=== PATIENT | male | born 1970 ===

== ENCOUNTER 2021-09-02 11:52 | Outpatient (REF) | payer OTHER, SELFPAY ==
[2021-09-02 13:43] LABS: Syphilis Screen Nonreactive (Nonreactive)
[2021-09-02 14:33] LABS: Erythrocyte Sedimentation Rate 25 MM/HR (0-15)
[2021-09-03 09:52] LABS: Anti-Thrombin III Activity 131 % normal (80-135)
[2021-09-03 11:17] LABS: Anti Nuclear Antibody Screen NEGATIVE (NEGATIVE)
[2021-09-03 11:31] LABS: PTT (LAC) Screen 32 sec (< OR = 40)
[2021-09-05 23:22] LABS: Protein C Activity 162 % (70-180); Protein S Activity rflx Tot&Fr 117 % (70-150)
[2021-09-06 20:06] LABS: Factor V Leiden NEGATIVE
[2021-09-07 12:22] LABS: Cardiolipin IgG Ab <2.0 GPL-U/mL; Cardiolipin IgM Ab <2.0 MPL-U/mL
== END 2021-09-02 11:53 | disposition home or self-care (01) ==
LOC: HO.LAB 11:52
PROVIDERS: Visit Provider Psychiatry & Neurology Neurology
DX: I63.50 Cerebral infarction due to unspecified occlusion or stenosis of unspecified cerebral artery (principal)
CPT/HCPCS: 36415; 81241; 85300; 85302; 85303; 85305; 85306; 85597; 85613; 85652; 85730; 86038; 86039; 86147; 86780

== ENCOUNTER → 2021-12-03 08:06 | Outpatient (REF) | payer OTHER, SELFPAY ==
--- NOTE | 2021-12-03 08:10 | CA_ITS ---
Transthoracic Echocardiogram Patient (Last, First, Middle): Kelli Marques, Gender: Male Date of : 1970 Age: 51 Procedure Date: 12/03/2021 Procedure Type: Transthoracic Echocardiogram Location: OP Height: 149.86 cm Weight: 89.36 kg BSA: 1.83 m2 Heart Rate: bpm BP: 130 / 76 mmHg Tire Changer Aircraft: CHRIS Referring MD: Franci Malone MD Clerical Aide Teacher: Shabbir Chavez MD Symptoms: I63.50 MULTIPLE CEREBRAL INFARCTIONS Study Quality: Technically Difficult ECG Rhythm: Sinus Conclusions: - 1. Technically limited study 2. Normal LV systolic function with impaired relaxation filling pattern 3. Limited visualization of cardiac valve with normal cardiac valvular Doppler 4. Normal RV systolic pressure Findings Left Ventricle Normal left ventricular size, thickness, and systolic function. The visually estimated ejection fraction is between 55-60%. Spectral Doppler is indicative of an impaired relaxation filling pattern. Right Ventricle The right ventricle was not well visualized. Atria The left atrium was not well visualized. Interatrial shunt cannot be excluded. The right atrium was not well visualized. Aortic Valve The aortic valve was not well visualized. There is no aortic valve stenosis. There is trace (trivial) aortic valve regurgitation. Mitral Valve The mitral valve was not well visualized. There is no mitral valve regurgitation. There is no mitral valve stenosis. Pulmonic Valve The pulmonic valve was not well visualized. Tricuspid Valve The tricuspid valve was not well visualized. There is trace tricuspid valve regurgitation. The right ventricular systolic pressure is normal. There is no evidence of pulmonary hypertension. Great Vessels The aorta was not well visualized. The pulmonary artery was not well visualized. Venous The inferior vena cava was not well visualized. Pericardium/Pleural The pericardium was not well visualized. Prior Study Comparison No prior study available for comparison. Recommendations, Care & Conclusions Consider a CHRISTIANO if clinically appropriate. Recommend contrast study to evaluate intracardiac shunting. Measurements 2D Linear Measurements IVSd: 0.94 0.6-0.9/0.6-1.0 cm LVIDd: 4.73 3.9-5.3/4.2-5.9 cm LVIDd Index: 2.58 2.4-3.2/2.2-3.1 cm/m2 LVIDs: 3.22 2.0-3.6 cm LVPWd: 1.15 0.7-1.1 cm LA Diam: 2.60 2.7-3.8/3.0-4.0 cm LAIDs Index: 1.42 1.5-2.3 cm/m2 LV Mass: 220.28 67-162/88-224 g LV Mass Index: 120.37 43-95/49-115 g/m2 LVOT Diam: 2.00 3.0+(-)1.3 cm 2D Systolic Function EF 4C: 58.00 >55% EF 2C: 59.00 >55% EF BiP: 57.80 >55% Mitral Valve MV Pk E: 0.62 MV PK A: 0.90 MV Decel Time: 249.00 E/A: 0.70 E'Lateral: 7.94 E'Medial: 5.98 E/E' Med: 10.40 E/E' Lat: 7.80 PHT: 73.00 MVA PHT: 3.01 Decel Marathon: 2.49 Aortic Valve AoV Pk Alex: 1.36 AoV Mn Alex: 1.05 AoV VTI: 0.32 AoV Pk Grad: 7.00 Aov Mn Grad: 5.00 OSMANY Cont.VTI: 2.25 LVOT LVOT Pk Alex: 0.99 LVOT Mn Alex: 0.66 LVOT VTI: 0.23 LVOT Pk Grad: 4.00 LVOT Mn Grad: 2.00 LVOT Diam: 2.00 LVOT Area: 3.14 Diastolic Function MV Pk E: 0.62 MV Pk A: 0.90 E/A: 0.70 E'Medial: 5.98 E/E' Med: 10.40 E' Laterial: 7.94 E/E' Lat: 7.80 Right Ventricle TAPSE (mm): 19.40 TVS' Alex: 11.90 Tricuspid Valve TR Pk Alex: 2.00 TR Pk Grad: 16.00 RA Press: 3.00 RVSP: 19.00 Great Vessels Aorta Sinus of Valsalva: 2.69 2.0-3.[address] Ridge: 2.49 1.7-3.4 cm Ao Asc: 3.00 2.1-3.4 cm Ao Arch: 2.80 Updated in Other Vendor System with Status of Final Shabbir Chavez MD electronically signed on 12/03/2021 11:03:23 AM with status of Final
== END ==
LOC: HO.CARD 08:06
PROVIDERS: Visit Provider Psychiatry & Neurology Neurology
DX: I63.50 Cerebral infarction due to unspecified occlusion or stenosis of unspecified cerebral artery (principal)
CPT/HCPCS: 93306

== ENCOUNTER → 2022-01-15 14:15 | Outpatient (BNVA) | payer OTHER, SELFPAY | PROVIDERS: Referring Provider Psychiatry & Neurology Neurology; Visit Provider Internal Medicine | DX: I63.9 Cerebral infarction, unspecified (principal) | CPT/HCPCS: 93005; 99202 ==

== ENCOUNTER 2022-01-23 06:01 | Day surgery (SDC) | payer OTHER, SELFPAY ==
--- NOTE | 2022-01-22 09:20 | HO.ANESPROP2 ---
Documented by User: Nikki Liu NP 01/22/22 09:26 HPI - Anesthesia Eval Consult details Narrative: 51yo F for Transesophageal Echocardiogram with bubble study PMFSH Active Problems Active Problems: All Active Problems (Updated 01/15/22 @ 14:53 by Erick Cline MD) Embolic stroke (Acute) Past Medical History Medical History Cancer Embolic stroke Family History Family History Mother No problems noted. Father No problems noted. Surgical History Surgical History History of surgery Social History Social History Patient Tobacco Use Status: Current everyday Tobacco user Tobacco use type: Cigarette Cigarettes Per Day: 5 Smoked in Last 30 Days: Yes Patient Given Instructions on How to Stop Smoking: Yes Date Education Initiated: 01/23/22 Second Hand Smoke Exposure: No Use of substances other than those prescribed or required for medical reasons: No Are you DNR?: No Advance Directives: No Advance Directives Information Provided: Yes Patient : No (hx tubal) Meds Allergies Allergy/AdvReac Type Severity Reaction Status Date / Time No Known Allergies Allergy Verified 01/15/22 14:38 Home Medications Medication Instructions Recorded Confirmed Last Taken Type aspirin 81 mg tablet,delayed 81 mg PO DAILY 01/15/22 01/23/22 01/22/22 History release atorvastatin 80 mg tablet 80 mg PO DAILY 01/15/22 01/23/22 Unknown History Exam Exam Date and Time: January 22, [id number] Narrative Narrative: ECHO 11/2021 Conclusions: - 1. Technically limited study ? 2. Normal LV systolic function with impaired relaxation filling? pattern? 3. Limited visualization of cardiac valve with normal cardiac? ? valvular Doppler ? 4.? Normal RV systolic pressure? Findings Left Ventricle Normal left ventricular size, thickness, and systolic function. The visually estimated ejection fraction is between 55-60%.? Spectral Doppler is indicative of an impaired relaxation filling pattern. Per Neuro note MRI brain at [facility] 05/2021: Small right motor strip and fainter smaller left frontal acute cerebral infarctions CTA brain and neck at [facility] 05/2021 OK EKG at [facility] : NSR Labs at [facility] 05/2021: cbc ok, cmp ok, LFTs ok, lyme neg, CHOl 209, LDL 151, HDL 46 Assessment and Plan Assessment Anesthesia Assessment: Chart Reviewed Documented by User: Renea Rossi MD 01/23/22 08:14 PMFSH Active Problems Active Problems: All Active Problems (Updated 01/15/22 @ 14:53 by Erick Cline MD) Embolic stroke (Acute) Snores but has had sleep study which was negative for ISMAEL Increased BMI Smoker- last cigarette yesterday 01/22/22 Past Medical History Medical History Cancer Embolic stroke Family History Family History Mother No problems noted. Father No problems noted. Family history of problems with anesthesia: No Surgical History Surgical History History of surgery History of Problems with Anesthesia: No Social History Social History Patient Tobacco Use Status: Current everyday Tobacco user Tobacco use type: Cigarette Cigarettes Per Day: 5 Smoked in Last 30 Days: Yes Patient Given Instructions on How to Stop Smoking: Yes Date Education Initiated: 01/23/22 Second Hand Smoke Exposure: No Use of substances other than those prescribed or required for medical reasons: No Are you DNR?: No Advance Directives: No Advance Directives Information Provided: Yes Patient : No (hx tubal) Meds Allergies Allergy/AdvReac Type Severity Reaction Status Date / Time No Known Allergies Allergy Verified 01/15/22 14:38 Home Medications Medication Instructions Recorded Confirmed Last Taken Type aspirin 81 mg tablet,delayed 81 mg PO DAILY 01/15/22 01/23/22 01/22/22 History release atorvastatin 80 mg tablet 80 mg PO DAILY 01/15/22 01/23/22 Unknown History Exam Height,Weight and Vital Signs: Height 4 ft 11 in Weight 89.358 kg Vital Signs Temp Pulse Resp BP Pulse Ox O2 Del Method 01/23/22 06:35 97.4 F 76 18 127/76 95 Room Air Airway Mallampati Class: I TM Dist: >3cm Neck ROM: Full Denture: Upper and Lower Heart: RRR Lungs: CTAB Assessment and Plan Assessment Anesthesia Assessment: Anesthesia Plan Discussed Final Anesthetic Review Family History of Problems with Anesthesia: No History of Problems with Anesthesia: No NPO: Yes ASA Class: III Final Preanesthetic Review: No Changes in Pt Med Stat, Meds/Allgs Chart Reviewed, Consent Obtained/Reviewed and Anes Risks/Benef Reviewed Patient Risk: Intermediate Procedure Risk: Low Assessment/Block/Sedation in SS: Assess/Block/Sedation-SS Anesthetic Plan Anesthetic Plan: MAC: Disposition: Standard PACU
[2022-01-23 06:08] VITALS: BMI 38.3
[2022-01-23 06:35] VITALS: BP 127/76; PULSE 76; RESP 18; TEMP 36.3; O2SAT 95; BMI 39.7
[2022-01-23] MEDS: Lactated Ringers 1,000 ML 100 ML IVCONT (06:57)
--- NOTE | 2022-01-23 07:54 | CA_ITS ---
Transesophageal Echocardiogram Patient (Last, First, Middle): Kelli Marques, Gender: Female Date of : 1970 Age: 51 Procedure Date: 01/23/2022 Procedure Type: Transesophageal Echocardiogram Location: OP Height: 149.8 cm Weight: 89.3 kg BSA: 1.83 m2 Heart Rate: bpm Timber Framer: LEANNA Referring MD: Erick Cline MD Symptoms: I63.9 - Cerebral infarction, unspecified Conclusion: ??? The left ventricular systolic function is normal. The visually estimated ejection fraction is between 55-60%. ??? There is no evidence of interatrial shunt by color Doppler and contrast. ??? There is mild to moderate aortic valve regurgitation. ??? Small plaque is seen in the arch and descending thoracic aorta. Findings Procedure Information Consent was obtained prior to the procedure. Pre CHRISTIANO oral cavity was checked and revealed no overcrowding. The adult 3D probe was passed with no difficulty. Left Ventricle Normal left ventricular cavity size. The left ventricular systolic function is normal. The visually estimated ejection fraction is between 55-60%. There is no evidence of regional wall motion abnormalities. Right Ventricle Normal right ventricular cavity size and systolic function. Atria There is no evidence of a thrombus in the left atrial appendage. There is no evidence of interatrial shunt by color Doppler and contrast. Bubble study negative during rest as well as well valsalva. Aortic Valve There is a normal trileaflet aortic valve. There is mild thickening of the aortic valve. There is no aortic valve stenosis. There is mild to moderate aortic valve regurgitation. Mitral Valve The mitral valve appears normal. There is trace mitral valve regurgitation. There is no mitral valve stenosis. Pulmonic Valve The pulmonic valve was not well visualized. Tricuspid Valve Normal tricuspid valve structure. There is trace tricuspid valve regurgitation. Great Vessels The aortic annulus, sinuses of valsalva, and asc aorta are normal in size. Small plaque is seen in the arch and descending thoracic aorta. Pericardium/Pleural There is no evidence of pericardial effusion. Prior Study Comparison Changes noted compared to prior study dated: 12/03/2021. See comments on aortic regurgitation. Updated by Erick Cline on 01:36 PM with Status of Final Erick Cline MD electronically signed on 01/25/2022 1:36:06 PM with status of Final
--- NOTE | 2022-01-23 08:12 | MHC.SHP ---
Pre-Procedural Eval Section A Date of Service: 01/23/22 The patient is an INPATIENT: No Section B Chief Complaint: cerebral infarction Allergies: Allergies Allergy/AdvReac Type Severity Reaction Status Date / Time No Known Allergies Allergy Verified 01/15/22 14:38 Plan I have reviewed the history and physical and performed a pertinent physical examination on my patient. No changes have occurred unless specified.
[2022-01-23 08:52] VITALS: BP 108/79; PULSE 75; RESP 16; TEMP 36.2; O2SAT 98
[2022-01-23 09:07] VITALS: BP 109/68; PULSE 69; RESP 18; TEMP 36.2; O2SAT 96
== END 2022-01-23 10:53 | disposition home or self-care (01) ==
PROVIDERS: Visit Provider Internal Medicine
PROC: (CPT 93312; principal; 2022-01-23 08:00)
DX: I63.9 Cerebral infarction, unspecified (principal); Z85.89 Personal history of malignant neoplasm of other organs and systems; Z92.21 Personal history of antineoplastic chemotherapy; Z79.82 Long term (current) use of aspirin; Z79.899 Other long term (current) drug therapy; F17.210 Nicotine dependence, cigarettes, uncomplicated
CPT/HCPCS: 93312

== ENCOUNTER 2022-02-05 09:46 | Outpatient (REF) | payer OTHER, SELFPAY ==
--- NOTE | 2022-02-05 09:40 | MHC.SHP ---
Pre-Procedural Eval Section A Date of Service: 02/05/22 The patient is an INPATIENT: No Changes since office visit: Yes Patient answered all questions; No Cold of Flu in the past 2 weeks, No New Medical Problems and No Changes in Medication The History & Physical has been completed within 30 days and I have reviewed it.: Yes Section B Chief Complaint: cerebral infarction Allergies: Allergies Allergy/AdvReac Type Severity Reaction Status Date / Time No Known Allergies Allergy Verified 01/15/22 14:38 Plan I have reviewed the history and physical and performed a pertinent physical examination on my patient. No changes have occurred unless specified.
[2022-02-05 09:59] VITALS: BP 132/75; PULSE 76; RESP 16; TEMP 36.4; O2SAT 95
[2022-02-05 10:00] VITALS: BMI 38.9
[2022-02-05 11:23] VITALS: BP 131/75; PULSE 70; RESP 16; O2SAT 97
--- NOTE | 2022-02-05 12:27 | PM.OP ---
Brief Operative Note Date of Service: 02/05/22 Pre-op diagnosis: Cryptogenic stroke Post-op diagnosis: same Procedure: Implantation of loop recorder Implants: [employer] implantable loop recorder, serial [id number] After obtaining full consent patient was brought to the minor surgery room. Patient was then laid supine on the operating table. The precordial area was then prepped and draped in sterile fashion. Patient was then given lidocaine 2% with epinephrine intradermally and subcutaneously in the 4th intercostal space. A [employer] implantable loop recorder was then inserted into the subcutaneous space using Seldinger technique. Measured R-wave at 0.51 mV The wound was then closed with Steri-Strips and pressure sterile dressing was then applied. Surgeon: Shabbir Chavez MD Anesthesia: local Was an Mixed Signal Design Engineer used for this Procedure?: No Estimated blood loss (mL): 2 Pathology: none sent Condition: stable Disposition: same day
--- NOTE | 2022-02-05 15:00 | HO.POSTANES ---
Post Anesthesia Evaluation Post Anesthesia Evaluation Vital Signs: Vital Signs Temp Pulse Resp BP Pulse Ox O2 Del Method 02/05/22 11:23 70 16 131/75 97 Room Air 02/05/22 09:59 97.6 F 76 16 132/75 95 Room Air Anesthesia: Monitored Mental Status: Awake Pain Control: Satisfactory Nausea/Vomiting: None Hydration: Adequate Anesthesia-Related Issues: No Anes. Related Issues
== END 2022-02-05 09:47 | disposition home or self-care (01) ==
LOC: HO.MS 09:46
PROVIDERS: Visit Provider Internal Medicine Cardiovascular Disease
PROC: (CPT 33285; principal; 2022-02-05 11:00)
DX: I63.9 Cerebral infarction, unspecified (principal); F17.210 Nicotine dependence, cigarettes, uncomplicated
CPT/HCPCS: 33285; C1764

== ENCOUNTER → 2022-02-19 13:57 | Outpatient (BNVA) | payer OTHER, SELFPAY | PROVIDERS: Visit Provider Nurse Practitioner Family | DX: Z51.89 Encounter for other specified aftercare (principal); I35.1 Nonrheumatic aortic (valve) insufficiency; Z86.73 Personal history of transient ischemic attack (TIA), and cerebral infarction without residual deficits; Z95.818 Presence of other cardiac implants and grafts | CPT/HCPCS: 99212 ==

== ENCOUNTER → 2022-08-27 08:56 | Outpatient (BNVA) | payer OTHER, SELFPAY | PROVIDERS: Visit Provider Internal Medicine | DX: I63.9 Cerebral infarction, unspecified (principal); I35.1 Nonrheumatic aortic (valve) insufficiency | CPT/HCPCS: 99212 ==

== ENCOUNTER → 2023-03-22 23:59 | Outpatient (BNV) | payer OTHER, SELFPAY ==
--- NOTE | 2023-03-23 15:49 | A.OFFVIS_ITS ---
Intake Intake Visit Reasons: Remote ILR Check- [facility] Allergies No Known Allergies Allergy (Verified 08/27/22 09:01) [facility] Medical History Cancer Embolic stroke Surgical History History of surgery Family History Mother No problems noted. Father No problems noted. Social History Patient Tobacco Use Status: Current everyday Tobacco user Tobacco use type: Cigarette Cigarettes Per Day: 5 Second Hand Smoke Exposure: No Office Procedures Cardiac Device Check Cardiac Device Check Details: Date of service 03/22/2023; in the current monitoring period, there is no evidence of atrial fibrillation. No atrial fibrilllation during lifetime. [id number] Cardiac Interrogation, subcut cardiac rhythm monitor Procedure code (CPT) selection complete Assessment & Plan Assessment & Plan (1) Embolic stroke: Code(s): I63.9 - Cerebral infarction, unspecified Coding Level of Care Code Procedure Only Diagnoses Embolic stroke I63.9 CPT Codes Cardiac Device Check - Cardiac Device 16: [id number] Cardiac Interrogation, subcut cardiac rhythm monitor ([id number])
== END ==
PROVIDERS: Visit Provider Internal Medicine
DX: I63.9 Cerebral infarction, unspecified (principal); Z95.818 Presence of other cardiac implants and grafts
CPT/HCPCS: 93298

== ENCOUNTER → 2023-05-11 23:59 | Outpatient (BNV) | payer OTHER, SELFPAY ==
--- NOTE | 2023-05-14 14:10 | A.OFFVIS_ITS ---
Intake Intake Visit Reasons: Remote ILR Check- [facility] Allergies No Known Allergies Allergy (Verified 05/14/23 12:59) [facility] Medical History Cancer Embolic stroke Surgical History History of surgery Family History Mother No problems noted. Father No problems noted. Social History Patient Tobacco Use Status: Current everyday Tobacco user Tobacco use type: Cigarette Cigarettes Per Day: 5 Second Hand Smoke Exposure: No Office Procedures Cardiac Device Check Cardiac Device Check Details: Date of service 05/11/2023; in the current monitoring period, there is no evidence of atrial fibrillation. No atrial fibrilllation during lifetime. [id number] Cardiac Interrogation, subcut cardiac rhythm monitor Procedure code (CPT) selection complete Assessment & Plan Assessment & Plan (1) Embolic stroke: Code(s): I63.9 - Cerebral infarction, unspecified Qualifiers: Precerebral and cerebral artery: unspecified cerebral artery Qualified Code(s): I63.40 - Cerebral infarction due to embolism of unspecified cerebral artery Coding Level of Care Code Procedure Only Diagnoses Cerebrovascular accident (CVA) due to embolism of cerebral artery I63.40 Precerebral and cerebral artery: unspecified cerebral artery CPT Codes Cardiac Device Check - Cardiac Device 16: [id number] Cardiac Interrogation, subcut cardiac rhythm monitor ([id number])
== END ==
PROVIDERS: Visit Provider Internal Medicine
DX: I63.40 Cerebral infarction due to embolism of unspecified cerebral artery (principal)
CPT/HCPCS: 93298

== ENCOUNTER 2023-05-14 12:44 | Outpatient (AMB) | payer OTHER, SELFPAY ==
--- NOTE | 2023-05-14 12:51 | A.OFFVIS_ITS ---
Intake Vital Signs 05/14/23 12:58 Height 4 ft 11 in Weight 219 lb 2.232 oz BMI 44.3 BP 115/64 Blood Pressure Location Rt brachial Position Sitting Respiration 16 Pulse 84 Pulse Source Pulse Oximeter Pulse Oximetry (%) 96 Oxygen Delivery Method Room Air Intake Visit Reasons: r/s from [id number] ill Intake Note: Patient here for follow up with EKG Seed Cutter Required: No Allergies No Known Allergies Allergy (Verified 05/14/23 12:59) Medication List - Last Reconciled 05/14/23 by Erick Cline MD aspirin 81 mg PO DAILY atorvastatin 80 mg PO DAILY HPI HPI Comments History of Present Illness Details Kelli returns for follow-up. She has ILR implanted regarding embolic stroke. To recall, there is a history of Ovarian cancer diagnosed 2016, status post surgery as well as chemotherapy. She has obesity at baseline. She went to [facility] in 2020 with slurring of speech and facial droop. At that time, MRI had revealed right-sided embolic looking infarct. CTA/brain and neck were unremarkable. EKG had showed sinus rhythm. Hypercoagulability screen was also negative. Then referred for cardiac workup. CHRISTIANO did not show any cardiac source of embolus. Hence implantable loop recorder placed. She states she is doing fine. No specific cardiac symptoms like angina or shortness of breath or anything else. Seems to be getting along fine. [facility] Medical History Cancer Embolic stroke Surgical History History of surgery Family History Mother No problems noted. Father No problems noted. Social History Patient Tobacco Use Status: Current everyday Tobacco user Tobacco use type: Cigarette Cigarettes Per Day: 5 Second Hand Smoke Exposure: No Review of Systems Const Denies weakness ENT Denies dizziness Card Denies chest pain, Denies chest pain with activity, Denies syncope, Denies rapid heart rate, Denies pedal edema, Denies edema, Denies leg edema, Denies lightheadedness, Denies palpitations, Denies dyspnea, Denies dyspnea on exertion and Denies orthopnea Resp Denies cough, Denies dyspnea and Denies dyspnea on exertion GI Denies hematochezia and Denies change in stool character Reports no additional complaints and Reports as per HPI Musc Denies abnormal gait, Denies muscle weakness, Denies numbness, Denies radiating pain into limb and Denies tingling Skin/Breast Reports system reviewed and no additional complaints, except as documented and Reports as per HPI Neuro Denies abnormal gait, Denies dizziness, Denies syncope, Denies numbness, Denies tingling and Denies weakness Psych Reports no additional complaints and Reports as per HPI Endo Denies palpitations Physical Exam Vital Signs: Last Vital Signs Pulse 84 05/14/23 12:58 Resp 16 05/14/23 12:58 BP 115/64 05/14/23 12:58 Pulse Ox 96 05/14/23 12:58 Oxygen Delivery Method Room Air 05/14/23 12:58 BMI result Body Mass Index 44.3 Const General: comfortable and no acute distress Orientation/consciousness: patient oriented x3 HEENT Other: Unremarkable Head: Yes normal to inspection Neck Neck: Yes normal visual inspection Chest Chest palpation & inspection: normal inspection of the chest Resp Auscultation: clear to auscultation bilaterally Cardio Palpation: normal PMI Heart sounds: S1 normal heart sound present, S2 normal heart sound present, no gallops, no murmurs and no rubs GI Palpation (GI): Soft to palpation Back/Spine/Pelvis Other: unremarkable Skin General skin exam: no rashes or lesions noted Neuro General: patient oriented x3 Extrem General: Yes normal to inspection Psych Mental Status: mental status grossly normal Office Procedures EKG Details: EKG with sinus rhythm at 79/Min; no significant ST-T changes and otherwise unremarkable[place] [id number], Complete Assessment & Plan Assessment & Plan (1) Embolic stroke: Code(s): I63.9 - Cerebral infarction, unspecified Qualifiers: Precerebral and cerebral artery: unspecified cerebral artery Qualified Code(s): I63.40 - Cerebral infarction due to embolism of unspecified cerebral artery Plan: Per neurology note, CTA brain and neck at [facility] was unremarkable. CT brain had shown acute right frontal infarct. On CHRISTIANO, no cardiac source of embolus. So far, no evidence of atrial fibrillation. Will continue to monitor. (2) Nonrheumatic aortic valve regurgitation: Code(s): I35.1 - Nonrheumatic aortic (valve) insufficiency Plan: Mild to moderate aortic regurgitation noted on CHRISTIANO. Not significant. Can be followed up with another study next year. Orders: Orders CA echo transthoracic complete 51 Weeks I35.1 - Nonrheumatic aortic (valve) insufficiency Coding Level of Care Code Est Pt Level 3 (00271) Diagnoses Cerebrovascular accident (CVA) due to embolism of cerebral artery I63.40 Precerebral and cerebral artery: unspecified cerebral artery Nonrheumatic aortic valve regurgitation I35.1 CPT Codes EKG - CPT: 84912-[id number], Complete ([id number])
[2023-05-14 12:58] VITALS: BP 115/64; PULSE 84; RESP 16; O2SAT 96; BMI 44.3
== END 2023-05-14 13:25 | disposition home or self-care (01) ==
PROVIDERS: Visit Provider Internal Medicine
DX: I63.40 Cerebral infarction due to embolism of unspecified cerebral artery (principal); I35.1 Nonrheumatic aortic (valve) insufficiency
CPT/HCPCS: 93010; 99213

== ENCOUNTER → 2023-05-14 12:44 | Outpatient (BNVA) | payer OTHER, SELFPAY | PROVIDERS: Visit Provider Internal Medicine | DX: I35.1 Nonrheumatic aortic (valve) insufficiency (principal); Z86.73 Personal history of transient ischemic attack (TIA), and cerebral infarction without residual deficits | CPT/HCPCS: 93005; 99212 ==

== ENCOUNTER → 2023-07-17 23:59 | Outpatient (BNV) | payer OTHER, SELFPAY ==
--- NOTE | 2023-07-26 18:37 | MHC.OFFVIS ---
Intake Intake Visit Reasons: Remote ILR Check- [facility] Allergies No Known Allergies Allergy (Verified 05/14/23 12:59) [facility] Medical History Cancer Embolic stroke Surgical History History of surgery Family History Mother No problems noted. Father No problems noted. Social History Patient Tobacco Use Status: Current everyday Tobacco user Tobacco use type: Cigarette Cigarettes Per Day: 5 Second Hand Smoke Exposure: No Office Procedures Cardiac Device Check Cardiac Device Check Details: Date of service 07/17/2023; in the current monitoring period, there is no evidence of atrial fibrillation. [id number] Cardiac Interrogation, subcut cardiac rhythm monitor Procedure code (CPT) selection complete Assessment & Plan Assessment & Plan (1) Embolic stroke: Code(s): I63.9 - Cerebral infarction, unspecified Qualifiers: Precerebral and cerebral artery: unspecified cerebral artery Qualified Code(s): I63.40 - Cerebral infarction due to embolism of unspecified cerebral artery Plan x Coding Level of Care Code Procedure Only Diagnoses Cerebrovascular accident (CVA) due to embolism of cerebral artery I63.40 Precerebral and cerebral artery: unspecified cerebral artery CPT Codes Cardiac Device Check - Cardiac Device 16: [id number] Cardiac Interrogation, subcut cardiac rhythm monitor ([id number])
== END ==
PROVIDERS: Visit Provider Internal Medicine
DX: I63.40 Cerebral infarction due to embolism of unspecified cerebral artery (principal)
CPT/HCPCS: 93298

== ENCOUNTER → 2023-08-05 23:59 | Outpatient (BNV) | payer OTHER, SELFPAY ==
--- NOTE | 2023-08-06 12:49 | MHC.OFFVIS ---
Intake Intake Visit Reasons: Remote ILR Check- [facility] Allergies No Known Allergies Allergy (Verified 05/14/23 12:59) [facility] Medical History Cancer Embolic stroke Surgical History History of surgery Family History Mother No problems noted. Father No problems noted. Social History Patient Tobacco Use Status: Current everyday Tobacco user Tobacco use type: Cigarette Cigarettes Per Day: 5 Second Hand Smoke Exposure: No Office Procedures Cardiac Device Check Cardiac Device Check Details: Date of service 08/05/2023; in the current monitoring period, there is no evidence of atrial fibrillation. [id number] Cardiac Interrogation, subcut cardiac rhythm monitor Procedure code (CPT) selection complete Assessment & Plan Assessment & Plan (1) Embolic stroke: Code(s): I63.9 - Cerebral infarction, unspecified Qualifiers: Precerebral and cerebral artery: unspecified cerebral artery Qualified Code(s): I63.40 - Cerebral infarction due to embolism of unspecified cerebral artery Plan x Coding Level of Care Code Procedure Only Diagnoses Cerebrovascular accident (CVA) due to embolism of cerebral artery I63.40 Precerebral and cerebral artery: unspecified cerebral artery CPT Codes Cardiac Device Check - Cardiac Device 16: [id number] Cardiac Interrogation, subcut cardiac rhythm monitor ([id number])
== END ==
PROVIDERS: Visit Provider Internal Medicine
DX: I63.40 Cerebral infarction due to embolism of unspecified cerebral artery (principal); Z95.818 Presence of other cardiac implants and grafts
CPT/HCPCS: 93298

== ENCOUNTER → 2023-09-05 23:59 | Outpatient (BNV) | payer OTHER, SELFPAY ==
--- NOTE | 2023-09-08 12:22 | A.OFFVIS_ITS ---
Intake Intake Visit Reasons: Remote ILR Check[facility] Allergies No Known Allergies Allergy (Verified 05/14/23 12:59) [facility] Medical History Cancer Embolic stroke Surgical History History of surgery Family History Mother No problems noted. Father No problems noted. Social History Patient Tobacco Use Status: Current everyday Tobacco user Tobacco use type: Cigarette Cigarettes Per Day: 5 Second Hand Smoke Exposure: No Office Procedures Cardiac Device Check Cardiac Device Check Details: Date of service 09/05/2023; in the current monitoring period, there is no evidence of atrial fibrillation. [id number] Cardiac Interrogation, subcut cardiac rhythm monitor Procedure code (CPT) selection complete Assessment & Plan Assessment & Plan (1) Embolic stroke: Code(s): I63.9 - Cerebral infarction, unspecified Qualifiers: Precerebral and cerebral artery: unspecified cerebral artery Qualified Code(s): I63.40 - Cerebral infarction due to embolism of unspecified cerebral artery Plan x Coding Level of Care Code Procedure Only Diagnoses Cerebrovascular accident (CVA) due to embolism of cerebral artery I63.40 Precerebral and cerebral artery: unspecified cerebral artery CPT Codes Cardiac Device Check - Cardiac Device 16: [id number] Cardiac Interrogation, subcut cardiac rhythm monitor ([id number])
== END ==
PROVIDERS: Visit Provider Internal Medicine
DX: I63.40 Cerebral infarction due to embolism of unspecified cerebral artery (principal); Z95.818 Presence of other cardiac implants and grafts
CPT/HCPCS: 93298

== ENCOUNTER → 2023-10-06 23:59 | Outpatient (BNV) | payer OTHER, SELFPAY ==
--- NOTE | 2023-10-07 18:59 | A.OFFVIS_ITS ---
Intake Intake Visit Reasons: Remote ILR Check- [facility] Allergies No Known Allergies Allergy (Verified 05/14/23 12:59) [facility] Medical History Cancer Embolic stroke Surgical History History of surgery Family History Mother No problems noted. Father No problems noted. Social History Patient Tobacco Use Status: Current everyday Tobacco user Tobacco use type: Cigarette Cigarettes Per Day: 5 Second Hand Smoke Exposure: No Office Procedures Cardiac Device Check Cardiac Device Check Details: Date of service 10/06/2023; in the current monitoring period, there is no evidence of atrial fibrillation. [id number] Cardiac Interrogation, subcut cardiac rhythm monitor Procedure code (CPT) selection complete Assessment & Plan Assessment & Plan (1) Embolic stroke: Code(s): I63.9 - Cerebral infarction, unspecified Qualifiers: Precerebral and cerebral artery: unspecified cerebral artery Qualified Code(s): I63.40 - Cerebral infarction due to embolism of unspecified cerebral artery Plan x Coding Level of Care Code Procedure Only Diagnoses Cerebrovascular accident (CVA) due to embolism of cerebral artery I63.40 Precerebral and cerebral artery: unspecified cerebral artery CPT Codes Cardiac Device Check - Cardiac Device 16: [id number] Cardiac Interrogation, subcut cardiac rhythm monitor ([id number])
== END ==
PROVIDERS: Visit Provider Internal Medicine
DX: I63.40 Cerebral infarction due to embolism of unspecified cerebral artery (principal); Z95.818 Presence of other cardiac implants and grafts
CPT/HCPCS: 93298

== ENCOUNTER → 2023-11-06 23:59 | Outpatient (BNV) | payer OTHER, SELFPAY ==
--- NOTE | 2023-11-08 18:54 | MHC.OFFVIS ---
Intake Intake Visit Reasons: Remote ILR Check- [facility] Allergies No Known Allergies Allergy (Verified 05/14/23 12:59) [facility] Medical History Cancer Embolic stroke Surgical History History of surgery Family History Mother No problems noted. Father No problems noted. Social History Patient Tobacco Use Status: Current everyday Tobacco user Tobacco use type: Cigarette Cigarettes Per Day: 5 Second Hand Smoke Exposure: No Office Procedures Cardiac Device Check Cardiac Device Check Details: Date of service 11/06/2023; in the current monitoring period, there is no evidence of atrial fibrillation. [id number] Cardiac Interrogation, subcut cardiac rhythm monitor Procedure code (CPT) selection complete Assessment & Plan Assessment & Plan (1) Embolic stroke: Code(s): I63.9 - Cerebral infarction, unspecified Qualifiers: Precerebral and cerebral artery: unspecified cerebral artery Qualified Code(s): I63.40 - Cerebral infarction due to embolism of unspecified cerebral artery Plan x Coding Level of Care Code Procedure Only Diagnoses Cerebrovascular accident (CVA) due to embolism of cerebral artery I63.40 Precerebral and cerebral artery: unspecified cerebral artery CPT Codes Cardiac Device Check - Cardiac Device 16: [id number] Cardiac Interrogation, subcut cardiac rhythm monitor ([id number])
== END ==
PROVIDERS: Visit Provider Internal Medicine
DX: I63.40 Cerebral infarction due to embolism of unspecified cerebral artery (principal)
CPT/HCPCS: 93298

== ENCOUNTER → 2023-12-07 23:59 | Outpatient (BNV) | payer OTHER, SELFPAY ==
--- NOTE | 2023-12-09 12:44 | MHC.OFFVIS ---
Intake Visit Reasons: REmote ILR - [facility] Allergies No Known Allergies Allergy (Verified 05/14/23 12:59) [facility] Medical History Cancer Embolic stroke Surgical History History of surgery Family History Mother No problems noted. Father No problems noted. Social History Patient Tobacco Use Status: Current everyday Tobacco user Tobacco use type: Cigarette Cigarettes Per Day: 5 Second Hand Smoke Exposure: No Office Procedures Cardiac Device Check Cardiac Device Check Details: Date of service 12/07/2023; in the current monitoring period, there is no evidence of atrial fibrillation. [id number] Cardiac Interrogation, subcut cardiac rhythm monitor Procedure code (CPT) selection complete Assessment & Plan Assessment & Plan (1) Embolic stroke: Code(s): I63.9 - Cerebral infarction, unspecified Category: Medical Qualifiers: Precerebral and cerebral artery: unspecified cerebral artery Qualified Code(s): I63.40 - Cerebral infarction due to embolism of unspecified cerebral artery Plan x Coding Level of Care Code Procedure Only Diagnoses Cerebrovascular accident (CVA) due to embolism of cerebral artery I63.40 Precerebral and cerebral artery: unspecified cerebral artery CPT Codes Cardiac Device Check - Cardiac Device 16: [id number] Cardiac Interrogation, subcut cardiac rhythm monitor ([id number])
== END ==
PROVIDERS: Visit Provider Internal Medicine
DX: I63.40 Cerebral infarction due to embolism of unspecified cerebral artery (principal); Z95.818 Presence of other cardiac implants and grafts
CPT/HCPCS: 93298

== ENCOUNTER → 2024-02-07 23:59 | Outpatient (BNV) | payer OTHER, SELFPAY ==
--- NOTE | 2024-02-11 13:51 | MHC.OFFVIS ---
Intake Visit Reasons: Remote ILR- [facility] Allergies No Known Allergies Allergy (Verified 05/14/23 12:59) [facility] Medical History Cancer Embolic stroke Surgical History History of surgery Family History Mother No problems noted. Father No problems noted. Social History Patient Tobacco Use Status: Current everyday Tobacco user Tobacco use type: Cigarette Cigarettes Per Day: 5 Second Hand Smoke Exposure: No Office Procedures Cardiac Device Check Cardiac Device Check Details: Date of service 02/07/2024; in the current monitoring period, there is no evidence of atrial fibrillation. [id number] Cardiac Interrogation, subcut cardiac rhythm monitor Procedure code (CPT) selection complete Assessment & Plan Assessment & Plan (1) Embolic stroke: Code(s): I63.9 - Cerebral infarction, unspecified Category: Medical Qualifiers: Precerebral and cerebral artery: unspecified cerebral artery Qualified Code(s): I63.40 - Cerebral infarction due to embolism of unspecified cerebral artery Plan x Coding Level of Care Code Procedure Only Diagnoses Cerebrovascular accident (CVA) due to embolism of cerebral artery I63.40 Precerebral and cerebral artery: unspecified cerebral artery CPT Codes Cardiac Device Check - Cardiac Device 16: [id number] Cardiac Interrogation, subcut cardiac rhythm monitor ([id number])
== END ==
PROVIDERS: Visit Provider Internal Medicine
DX: I63.40 Cerebral infarction due to embolism of unspecified cerebral artery (principal); Z95.818 Presence of other cardiac implants and grafts
CPT/HCPCS: 93298

== ENCOUNTER → 2024-03-09 23:59 | Outpatient (BNV) | payer OTHER, SELFPAY ==
--- NOTE | 2024-03-12 14:18 | A.OFFVIS_ITS ---
Intake Visit Reasons: Remote ILR check- [facility] Allergies No Known Allergies Allergy (Verified 05/14/23 12:59) [facility] Medical History Cancer Embolic stroke Surgical History History of surgery Family History Mother No problems noted. Father No problems noted. Social History Patient Tobacco Use Status: Current everyday Tobacco user Tobacco use type: Cigarette Cigarettes Per Day: 5 Second Hand Smoke Exposure: No Office Procedures Cardiac Device Check Cardiac Device Check Details: Date of service 03/09/2024; in the current monitoring period, there is no evidence of atrial fibrillation. [id number] Cardiac Device Interrogation, cardio physiologic monitor Procedure code (CPT) selection complete Assessment & Plan Assessment & Plan (1) Embolic stroke: Code(s): I63.9 - Cerebral infarction, unspecified Category: Medical Qualifiers: Precerebral and cerebral artery: unspecified cerebral artery Qualified Code(s): I63.40 - Cerebral infarction due to embolism of unspecified cerebral artery Plan x Coding Level of Care Code Procedure Only Diagnoses Cerebrovascular accident (CVA) due to embolism of cerebral artery I63.40 Precerebral and cerebral artery: unspecified cerebral artery CPT Codes Cardiac Device Check - Cardiac Device 15: [id number] Cardiac Device Interrogation, cardio physiologic monitor ([id number])
== END ==
PROVIDERS: Visit Provider Internal Medicine
DX: I63.40 Cerebral infarction due to embolism of unspecified cerebral artery (principal); Z95.818 Presence of other cardiac implants and grafts
CPT/HCPCS: 93297; 93298

== ENCOUNTER → 2024-05-04 10:50 | Outpatient (REF) | payer OTHER, SELFPAY ==
--- NOTE | 2024-05-04 10:53 | CA_ITS ---
Transthoracic Echocardiogram Patient (Last, First, Middle): Kelli Marques, Gender: Female Date of : 1970 Age: 54 Procedure Date: 05/04/2024 Procedure Type: Transthoracic Echocardiogram Location: OP Height: 149.86 cm Weight: 90.72 kg BSA: 1.84 m2 Heart Rate: 77 bpm BP: 120 / 70 mmHg Interactive Media Director: JOHNATHAN Referring MD: Erick Cline MD Cloth Edge Singer: Shabbir Chavez MD Symptoms: I35.1 - Nonrheumatic aortic (valve) insufficiency Study Quality: Adequate ECG Rhythm: Sinus Conclusions: - 1. Normal LV ejection fraction of 60 65% with impaired relaxation filling pattern 2. Mild aortic regurgitation 3. No gross pericardial effusion Findings Left Ventricle Normal left ventricular size, thickness, and systolic function. The visually estimated ejection fraction is between 60-65%. Spectral Doppler is indicative of an impaired relaxation filling pattern. E/E prime ratio is <8, consistent with normal filling pressures. Evidence suggests grade I (mild) diastolic dysfunction. Right Ventricle Normal right ventricular cavity size and systolic function. Atria Both atria are normal in size. Interatrial shunt cannot be excluded. Aortic Valve The aortic valve was not well visualized. There is no aortic valve stenosis. There is mild aortic valve regurgitation. Mitral Valve Likely normal mitral valve structure and function. There is trace mitral valve regurgitation. There is no mitral valve stenosis. Pulmonic Valve The pulmonic valve was not well visualized. Tricuspid Valve Likely normal tricuspid valve structure and function. Tricuspid regurgitation envelope is inadequate for calculation of right ventricular systolic pressure. Normal right atrial pressure. Great Vessels All visible segments of the aorta are normal in size. The pulmonary artery was not well visualized. Venous The inferior vena cava is normal in size and collapses greater than 50% with inspiration. Pericardium/Pleural There is no evidence of pericardial effusion. Measurements 2D Linear Measurements IVSd: 1.16 0.6-0.9/0.6-1.0 cm LVIDd: 4.91 3.9-5.3/4.2-5.9 cm LVIDd Index: 2.67 2.4-3.2/2.2-3.1 cm/m2 LVIDs: 3.58 2.0-3.6 cm LVPWd: 0.82 0.7-1.1 cm LA Diam: 3.80 2.7-3.8/3.0-4.0 cm LAIDs Index: 2.07 1.5-2.3 cm/m2 LV Mass: 217.51 67-162/88-224 g LV Mass Index: 118.21 43-95/49-115 g/m2 LVOT Diam: 2.00 3.0+(-)1.3 cm 2D Systolic Function EF 4C: 58.70 >55% EF 2C: 66.30 >55% EF BiP: 60.90 >55% Mitral Valve MV Pk E: 0.45 MV PK A: 0.81 MV Decel Time: 187.00 E/A: 0.60 E'Lateral: 7.07 E'Medial: 4.57 E/E' Med: 9.90 E/E' Lat: 6.40 PHT: 55.00 MVA PHT: 4.00 Decel [place]: 2.43 Aortic Valve AoV Pk Alex: 1.57 AoV Mn Alex: 1.00 AoV VTI: 0.29 AoV Pk Grad: 10.00 Aov Mn Grad: 5.00 OSMANY Cont.VTI: 2.57 AI Pk Alex: 4.20 AI VTI: 2.21 AI [place]: 1.90 LVOT LVOT Pk Alex: 1.16 LVOT Mn Alex: 0.80 LVOT VTI: 0.24 LVOT Pk Grad: 5.00 LVOT Mn Grad: 3.00 LVOT Diam: 2.00 LVOT Area: 3.14 Diastolic Function MV Pk E: 0.45 MV Pk A: 0.81 E/A: 0.60 E'Medial: 4.57 E/E' Med: 9.90 E' Laterial: 7.07 E/E' Lat: 6.40 Right Ventricle TAPSE (mm): 15.50 TVS' Alex: 9.57 Tricuspid Valve TR Pk Alex: 1.98 TR Pk Grad: 16.00 RA Press: 3.00 Great Vessels Aorta Sinus of Valsalva: 2.90 2.0-3.5 cm Ao Asc: 3.10 2.1-3.4 cm Ao Arch: 2.60 Pulmonary Valve PV Pk Alex: 0.83 Peak PV Grad: 3.00 Updated in Other Vendor System with Status of Final Shabbir Chavez MD electronically signed on 05/05/2024 11:41:05 AM with status of Final
== END ==
LOC: HO.CARD 10:50
PROVIDERS: PCP Internal Medicine; Visit Provider Internal Medicine
DX: I35.1 Nonrheumatic aortic (valve) insufficiency (principal)
CPT/HCPCS: 93306

== ENCOUNTER → 2024-05-04 10:53 | Outpatient (BNV) | payer OTHER, SELFPAY | PROVIDERS: PCP Internal Medicine; Visit Provider Internal Medicine Cardiovascular Disease | DX: I35.1 Nonrheumatic aortic (valve) insufficiency (principal); I51.89 Other ill-defined heart diseases | CPT/HCPCS: 93306 ==

== ENCOUNTER 2024-06-20 13:11 | Outpatient (AMB) | payer OTHER, SELFPAY ==
[2024-06-20 13:44] VITALS: BP 122/72; PULSE 106; BMI 41.1
--- NOTE | 2024-06-20 13:44 | A.OFFVIS_ITS ---
Vital Signs 06/20/24 13:44 Height 4 ft 11 in Weight 203 lb 4.259 oz BMI 41.1 BP 122/72 Blood Pressure Location Lt brachial Position Sitting Pulse 106 H Pulse Source Monitor Intake Visit Reasons: ? ILR batter Aemt Required: No Allergies No Known Allergies Allergy (Verified 06/20/24 13:46) Medication List - Last Reconciled 06/21/24 by Libby Perry, JACQUE-C aspirin 81 mg PO DAILY atorvastatin 80 mg PO DAILY cholecalciferol (vitamin D3) PO niraparib (Zejula) 200 mg PO DAILY HPI HPI ? ILR batter : Details: Emely is a 54-year-old female with past medical history of embolic stroke, implanted loop recorder in place who presents for follow-up. Today she reports that she has been doing very well since her last visit 05/14/2023. She has not had any recurrent neurological changes. She denies chest discomfort at rest or with activity. No heart palpitations, lightheadedness, presyncope, syncope. No shortness of breath, PND, orthopnea or edema. She reports good activity tolerance. She reports compliance with her meds. COUNTS INCLUDE 234 BEDS AT THE [facility] Medical History Cancer Embolic stroke Surgical History History of surgery Family History Mother No problems noted. Father No problems noted. Social History Patient Tobacco Use Status: Current everyday Tobacco user Tobacco use type: Cigarette Cigarettes Per Day: 5 Second Hand Smoke Exposure: No Review of Systems Const All systems reviewed & are unremarkable except as noted in HPI and below ENT Denies dizziness Card Denies chest pain, Denies chest pain at rest, Denies chest pain with activity, Reports rapid heart rate, Denies pedal edema, Denies edema, Denies leg edema, Denies lightheadedness, Denies palpitations, Denies dyspnea, Denies dyspnea on exertion and Denies orthopnea Resp Denies cough, Denies dyspnea and Denies dyspnea on exertion GI Denies hematochezia and Denies change in stool character Musc Denies abnormal gait, Denies limited range of motion, Denies muscle cramps, Denies muscle weakness, Denies numbness, Denies radiating pain into limb, Denies stiffness and Denies tingling Neuro Denies abnormal gait, Denies dizziness, Denies numbness and Denies tingling Endo Denies palpitations Physical Exam Vital Signs: Last Vital Signs Pulse 106 H 06/20/24 13:44 BP 122/72 06/20/24 13:44 BMI result Body Mass Index 41.1 Const General: cooperative, healthy appearing, comfortable and no acute distress Orientation/consciousness: patient oriented x3 Neck Neck: Yes normal visual inspection Resp Effort & Inspection: normal respiratory effort Auscultation: clear to auscultation bilaterally, no crackles, no rales, no rhonchi and no wheezes Cardio Jugular venous distension: no JVD Rate: regular rate Rhythm: regular rhythm Heart sounds: S1 normal heart sound present, S2 normal heart sound present, no murmurs and no rubs Neuro General: patient oriented x3 Extrem General: Yes normal to inspection and No no pedal edema Psych Appearance: grossly normal Mental Status: mental status grossly normal Speech and movement: Normal speech and movement present Office Procedures EKG Details: Today, read by me, sinus tachycardia, PVC, rate 106, QTC 448 milliseconds [id number], Complete Assessment & Plan Assessment & Plan (1) Implantable loop recorder present: Comment: 02/05/[address] Chavez. [facility] Code(s): Z95.818 - Presence of other cardiac implants and grafts Category: Medical Plan: History of embolic CVA 2020. She has had a implanted loop recorder in place since 01/2022, with remote and in office monitoring since that time. She has not had any documented atrial fibrillation episodes. An echocardiogram was done on 05/04/2024 showing EF 60-65%, mild aortic regurgitation, grade 1 diastolic dysfunction. Her rhythm was sinus at the time of the echocardiogram. EKG done today is showing sinus tachycardia, 1 PVC, rate 106. She has no concerning heart palpitations. At this time her ILR battery is at end of life. Spoke with her about ILR removal and she is agreeable to proceed. Will make arrangements with Dr. Chavez this week. Nurse visit in 7-10 days for a wound check. Cardiology follow-up can be p.r.n.. (2) Embolic stroke: Code(s): I63.9 - Cerebral infarction, unspecified Category: Medical Qualifiers: Precerebral and cerebral artery: unspecified cerebral artery Qualified Code(s): I63.40 - Cerebral infarction due to embolism of unspecified cerebral artery Plan: As above (3) Aortic regurgitation: Code(s): I35.1 - Nonrheumatic aortic (valve) insufficiency Category: Medical Plan: Echocardiogram shows mild aortic regurgitation. Can be followed with periodic echocardiograms. Recommend recheck in approximately 2 years. Will forward this note to her PCP. Plan Time spent on chart review, documentation, interview and assessment Coding Level of Care Code Est Pt Level 3 (51256) Diagnoses Implantable loop recorder present Z95.818 Cerebrovascular accident (CVA) due to embolism of cerebral artery I63.40 Precerebral and cerebral artery: unspecified cerebral artery Aortic regurgitation I35.1 CPT Codes EKG - CPT: 21947-[id number], Complete ([id number]) Time Spent (min) 25
== END 2024-06-20 14:18 | disposition home or self-care (01) ==
LOC: HO.HCS 13:17
PROVIDERS: PCP Internal Medicine; Visit Provider Nurse Practitioner Family
DX: Z95.818 Presence of other cardiac implants and grafts (principal); I63.40 Cerebral infarction due to embolism of unspecified cerebral artery; I35.1 Nonrheumatic aortic (valve) insufficiency
CPT/HCPCS: 93010; 99213

== ENCOUNTER → 2024-06-20 13:11 | Outpatient (BNVA) | payer OTHER, SELFPAY | PROVIDERS: PCP Internal Medicine; Visit Provider Nurse Practitioner Family | DX: I35.1 Nonrheumatic aortic (valve) insufficiency (principal); I63.40 Cerebral infarction due to embolism of unspecified cerebral artery; Z95.818 Presence of other cardiac implants and grafts; R00.0 Tachycardia, unspecified | CPT/HCPCS: 93005; 99212 ==

== ENCOUNTER 2024-06-24 12:40 | Outpatient (REF) | payer OTHER, SELFPAY ==
[2024-06-24 13:23] VITALS: BP 159/82; PULSE 89; RESP 16; TEMP 36.7; O2SAT 98; BMI 37.0
--- NOTE | 2024-06-24 14:14 | PM.OP ---
Brief Operative Note Date of Service: 06/24/24 Pre-op diagnosis: Presence of implantable loop recorder Post-op diagnosis: same Procedure: Removal of implantable loop recorder Implants: After obtaining consent patient was brought to the minor surgery and laid supine on the operating table. The precordial area was then prepped and draped in a sterile fashion. Patient was then given 2% lidocaine with epinephrine intradermally and subcutaneously around the head of the device. A small incision was then made. The device then was removed using Mary forcep. The wound was then closed with help of Steri-Strips and pressure dressing applied. Surgeon: Shabbir Chavez MD Anesthesia: local Was an Casualty Underwriter used for this Procedure?: No Estimated blood loss (mL): 2 Pathology: none sent Condition: stable Disposition: same day
== END 2024-06-24 12:41 | disposition home or self-care (01) ==
LOC: HO.MS 12:40
PROVIDERS: PCP Internal Medicine; Visit Provider Internal Medicine Cardiovascular Disease
PROC: (CPT 33286; principal; 2024-06-24 13:30)
DX: R00.2 Palpitations (principal); Z95.818 Presence of other cardiac implants and grafts
CPT/HCPCS: 33286; J2004

== ENCOUNTER → 2024-06-24 12:40 | Outpatient (BNV) | payer OTHER, SELFPAY | PROVIDERS: PCP Internal Medicine; Visit Provider Internal Medicine Cardiovascular Disease | DX: Z45.09 Encounter for adjustment and management of other cardiac device (principal) | CPT/HCPCS: 33286 ==